=== PATIENT | male | born 1965 | race Caucasian/White ===

== ENCOUNTER 2017-06-29 19:26 | Emergency (ER) | payer BC ==
[~2017-06-29] VITALS: Ht 175.3 cm; Wt 87.9 kg
[~2017-06-29 19:26] MED LIST: COZAAR25 MG PO; MEDROL DOSEPAK4 MG PO; PERCOCET 5/31 TABLET PO; TYLENOL WITH C1 EACH PO
[2017-06-29 19:30] VITALS: BP 126/91
[2017-06-29] MEDS ORDERED: NAPROXEN500 MG PO (21:39)
== END 2017-06-29 21:43 | disposition home or self-care (01) ==
LOC: EME 19:26
DX: S61.512A Laceration without foreign body of left wrist, initial encounter (principal); W18.39XA Other fall on same level, initial encounter; W45.8XXA Other foreign body or object entering through skin, initial encounter; Y93.H2 Activity, gardening and landscaping; Z23 Encounter for immunization; I10 Essential (primary) hypertension; F17.200 Nicotine dependence, unspecified, uncomplicated
CPT/HCPCS: 99281; 99284